=== PATIENT | female | born 1950 | race African-American/Black ===

== ENCOUNTER 2020-01-12 11:06 | Emergency (ER) | payer OTHER ==
[~2020-01-12] VITALS: Ht 157.5 cm; Wt 74.8 kg
[~2020-01-12 11:06] MED LIST: ACETAMINOPHEN325 M1 PO; AFLURIA 2045 MCG/0.4; ASPIRIN EC81 M1 PO; IBUPROFEN 400400 M1 PO; NOHOMEMEDICATIONS; NORCO 5-325 TA1 EACH PO; PNEUMOVAX25 MCG/0.5; SIMVASTATIN20 MG PO
[2020-01-12 11:45] LABS: URINE BILIRUBIN NEGATIVE (Negative); URINE BLOOD TRACE (Negative); URINE CLARITY CLEAR; URINE COLOR YELLOW; URINE GLUCOSE-RANDOM* NEGATIVE (Negative); URINE KETONES NEGATIVE (Negative); URINE LEUKOCYTES-REFLEX TRACE (Negative); URINE NITRITE-REFLEX NEGATIVE (Negative); URINE PROTEIN (DIPSTICK) NEGATIVE (Negative); URINE UROBILINOGEN 0.2 E.U./dl (0.2-1.0)
[2020-01-12] MEDS ORDERED: IBUPROFEN 400400 M2 PO (12:29)
[2020-01-12 13:10] VITALS: BP 157/88
== END 2020-01-12 13:10 | disposition home or self-care (01) ==
LOC: ER 11:06
PROVIDERS: Physician Assistant
DX: S16.1XXA Strain of muscle, fascia and tendon at neck level, initial encounter (principal); R30.0 Dysuria; E78.5 Hyperlipidemia, unspecified; E66.9 Obesity, unspecified; Z68.30 Body mass index [BMI] 30.0-30.9, adult; Z88.0 Allergy status to penicillin; V89.2XXA Person injured in unspecified motor-vehicle accident, traffic, initial encounter; Y93.89 Activity, other specified; Y92.89 Other specified places as the place of occurrence of the external cause; Y99.8 Other external cause status